=== PATIENT | male | born 1980 | race Caucasian/White ===

== ENCOUNTER 2022-02-28 12:19 | Emergency (ER) | payer MEDICAID, OTHER ==
[~2022-02-28] VITALS: Ht 182.9 cm; Wt 79.5 kg
[~2022-02-28 12:19] MED LIST: AZIT250T82 PO; CYCL-394 PO; HYDR1TAB PO; IBUP-1051 PO; IBUP-1574 PO; METH-603 PO; NO HOME MEDS; NORCO10T PO; PRED10TA PO; TRAM50TA2 PO
[2022-02-28 13:17] VITALS: BP 110/75
== END 2022-02-28 14:37 | disposition home or self-care (01) ==
LOC: ER 12:19
DX: Z00.00 Encounter for general adult medical examination without abnormal findings (principal); G89.29 Other chronic pain; M54.50 Low back pain, unspecified; F15.20 Other stimulant dependence, uncomplicated; Z59.00 Homelessness unspecified; Z56.0 Unemployment, unspecified
CPT/HCPCS: 93005; 99283

== ENCOUNTER 2022-07-12 11:34 | Emergency (ER) | payer MEDICAID ==
[~2022-07-12] VITALS: Ht 182.9 cm; Wt 77.3 kg
--- NOTE | 2022-07-12 13:39 | NUR ---
Met with patient after him being seen at [facility] and dosed with Suboxone to soon after his Methadone dose on Monday. Patient is having symptoms of being in pre anticipated withdrawal. I spoke to Casandra and he will see patient.
[2022-07-12] MEDS ORDERED: buprenorphine/naloxone 8MG-2MG SUBlingual film SL STA ×4 (14:02→16:53)
--- NOTE | 2022-07-12 14:57 | NUR ---
Made patient an appointment for Jul 25 at [facility] in [place] at the [facility].
[2022-07-12 15:02] VITALS: BP 105/65
[2022-07-12] MEDS ORDERED: ondansetron 4mg rapidly disintigrating tab PO ONE (15:20)
[2022-07-12] MEDS ORDERED: hydrOXYzine 25 MG tablet PO ONE (16:55)
[2022-07-12] MEDS ORDERED: BUPR1FIL3 SL ×2 (16:56→17:22)
[2022-07-13] MEDS ORDERED: BUPR1FIL3 SL (12:20)
== END 2022-07-12 17:27 | disposition home or self-care (01) ==
LOC: ER 11:35
DX: F11.23 Opioid dependence with withdrawal (principal); R00.0 Tachycardia, unspecified; G89.29 Other chronic pain; F15.90 Other stimulant use, unspecified, uncomplicated; F19.90 Other psychoactive substance use, unspecified, uncomplicated; Z86.19 Personal history of other infectious and parasitic diseases; Z72.89 Other problems related to lifestyle; Z60.2 Problems related to living alone; Z56.0 Unemployment, unspecified; Z59.00 Homelessness unspecified; Z79.2 Long term (current) use of antibiotics; Z79.899 Other long term (current) drug therapy
CPT/HCPCS: 99284; Q0177